=== PATIENT | female | born 2000 | race Caucasian/White ===

== ENCOUNTER 2024-07-04 00:05 | Inpatient (IN) | payer OTHER ==
[~2024-07-04] VITALS: Ht 170.2 cm; Wt 104.3 kg
[2024-07-04] MEDS ORDERED: miSOPROStoL 25 MCG TAB PV SCH (00:30)
[2024-07-04] MEDS ORDERED: MAGNESIUM HYDROXIDE/AL HYDROX 30 ML CUP PO PRN ×2 (00:30→10:15)
[2024-07-04] MEDS ORDERED: LACTATED RINGER'S 1,000 ML IV PRN (00:30)
[2024-07-04] MEDS ORDERED: OXYTOCIN/DEXTROSE 5% 20 UNITS/100 ML BAG IV SCH (00:30)
[2024-07-04] MEDS ORDERED: CALCIUM CARBONATE 500 MG CHEW PO PRN ×2 (00:30→10:15)
[2024-07-04] MEDS ORDERED: LACTATED RINGER'S 1,000 ML IV SCH (00:30)
[2024-07-04 00:48] LABS: HEMATOCRIT 34.2 % (35.0-50.0); HEMOGLOBIN 11.7 g/dL (12.0-18.0); MCH 30.2 (27-36); MCHC 34.1 g/dl (30-36); MCV 88.7 fl (81-99); RBC 3.86 M/ul (4.3-5.7)
[2024-07-04 01:04] LABS: AMPHETAMINES, URINE NEGATIVE (NEGATIVE); BARBITURATES, URINE NEGATIVE (NEGATIVE); BENZODIAZEPINE, URINE NEGATIVE (NEGATIVE); BUPRENORPHINE, URINE NEGATIVE (NEGATIVE); CANNABINOID, URINE NEGATIVE (NEGATIVE); COCAINE, URINE NEGATIVE (NEGATIVE); ECSTASY, URINE NEGATIVE (NEGATIVE); FENTANYL, URINE NEGATIVE (NEGATIVE); METHADONE, URINE NEGATIVE (NEGATIVE); OPIATES, URINE NEGATIVE (NEGATIVE); OXYCODONE, URINE NEGATIVE (NEGATIVE); PHENCYCLIDINE, URINE NEGATIVE (NEGATIVE)
[2024-07-04 01:22] LABS: ABO A; ANTIBODY SCREEN NEGATIVE; RH POSITIVE
[2024-07-04] MEDS ORDERED: LACTATED RINGER'S 500 ML IV PRN (07:15)
[2024-07-04] MEDS ORDERED: ROPIVACAINE 0.2% 200 ML BAG EPIDURAL SCH (07:15)
[2024-07-04] MEDS ORDERED: LACTATED RINGER'S 2,000 ML IV ONE (07:15)
[2024-07-04] MEDS ORDERED: ePHEDrine sulfate 5 MG/ML SYRINGE IV PRN (07:15)
[2024-07-04 08:32] LABS: CREATININE, SERUM 0.79 mg/dL (0.55-1.02)
[2024-07-04 08:40] LABS: CREATININE, RANDOM URINE 203.21 mg/dL (NOT ESTABLISHED); PROTEIN/CREATININE RATIO 0.12 mg/mg (0.010-0.107)
[2024-07-04] MEDS ORDERED: ACETAMINOPHEN 325 MG TAB PO PRN (10:15)
[2024-07-04] MEDS ORDERED: HYDROCORTISONE ACETATE 25 MG SUPP PR PRN (10:15)
[2024-07-04] MEDS ORDERED: OXYTOCIN/0.9 % SODIUM CHLORIDE 500 ML IV SCH (10:15)
[2024-07-04] MEDS ORDERED: IBUPROFEN 600 MG TAB PO PRN (10:15)
[2024-07-04] MEDS ORDERED: OXYCODONE HCL 5 MG TAB PO PRN (10:15)
[2024-07-04] MEDS ORDERED: HYDROCODONE/ACETA 5/325 TAB PO PRN (10:15)
[2024-07-04] MEDS ORDERED: WITCH HAZEL/GLYCERIN 1 EA PAD TOP PRN (10:15)
[2024-07-04] MEDS ORDERED: BENZOCAINE 60 ML AEROSOL TOP PRN (10:15)
[2024-07-04] MEDS ORDERED: LIDOCAINE 2% VISCOUS 6 ML SYR TOP ONE ×2 (10:15)
[2024-07-04] MEDS ORDERED: MAGNESIUM HYDROXIDE 30 ML UDC PO PRN (10:15)
[2024-07-04 15:23] LABS: HEMATOCRIT 38.1 % (35.0-50.0); HEMOGLOBIN 12.9 g/dL (12.0-18.0); MCH 30.2 (27-36); MCHC 33.9 g/dl (30-36); MCV 89.1 fl (81-99); RBC 4.28 M/ul (4.3-5.7); RDW 14.7 (10.5-15.0)
[2024-07-04] MEDS ORDERED: SENNOSIDES/DOCUSATE 1 EA TAB PO SCH (21:00)
[2024-07-05 05:45] LABS: HEMATOCRIT 36.1 % (35.0-50.0); HEMOGLOBIN 12.1 g/dL (12.0-18.0); MCH 30.1 (27-36); MCHC 33.6 g/dl (30-36); MCV 89.7 fl (81-99); PLATELET COUNT 112 K/uL (140-440); RBC 4.02 M/ul (4.3-5.7); RDW 14.8 (10.5-15.0)
[2024-07-05 06:04] LABS: SMEAR REVIEW BLOOD SEE COMMENTS
[2024-07-05 06:05] LABS: ALBUMIN 2.4 g/dL (3.4-5.0); ALBUMIN/GLOBULIN RATIO 0.73 (1.1-2.4); ANION GAP 12.1 (7-21); BILIRUBIN, TOTAL 0.2 ng/dL (0.2-1.0); BUN/CREATININE RATIO 11.84 (6.0-28.6); CALCIUM 8.5 mg/dL (8.5-10.1); CREATININE, SERUM 0.76 mg/dL (0.55-1.02); POTASSIUM 4.1 mmol/L (3.5-5.1); PROTEIN, TOTAL 5.7 g/dL (6.4-8.2)
[2024-07-06 05:37] LABS: HEMATOCRIT 33.1 % (35.0-50.0); HEMOGLOBIN 11.3 g/dL (12.0-18.0); MCH 30.5 (27-36); MCV 89.8 fl (81-99); RBC 3.69 M/ul (4.3-5.7); RDW 14.9 (10.5-15.0)
== END 2024-07-06 12:58 | disposition home or self-care (01) | DRG 807 ==
LOC: FBC 00:05
PROVIDERS: ADMIT Obstetrics & Gynecology; ATTEND Obstetrics & Gynecology
PROC: 10E0XZZ Delivery of Products of Conception, External Approach (ICD-10-PCS; principal; 2024-07-04)
PROC: 0KQM0ZZ Repair Perineum Muscle, Open Approach (ICD-10-PCS; 2024-07-04)
PROC: 3E0DXGC Introduction of Other Therapeutic Substance into Mouth and Pharynx, External Approach (ICD-10-PCS; 2024-07-04)
DX: O69.81X0 Labor and delivery complicated by cord around neck, without compression, not applicable or unspecified (principal); Z37.0 Single live birth; O70.1 Second degree perineal laceration during delivery; O76 Abnormality in fetal heart rate and rhythm complicating labor and delivery; Z3A.39 39 weeks gestation of pregnancy
CPT/HCPCS: 01960; 36415; 80053; 80307; 82565; 82570; 84156; 84450; 84520; 84550; 85027; 85060; 86850; 86900; 86901; A9270; J2590; J7121

== ENCOUNTER 2025-07-30 00:08 | Inpatient (IN) | payer OTHER ==
[~2025-07-30] VITALS: Ht 170.2 cm; Wt 103.0 kg
[2025-07-30] MEDS ORDERED: LACTATED RINGER'S 1,000 ML IV SCH (01:00)
[2025-07-30] MEDS ORDERED: TERBUTALINE SULFATE 1 MG/ML AMP SUB-Q PRN (01:00)
[2025-07-30] MEDS ORDERED: MAGNESIUM HYDROXIDE/AL HYDROX 30 ML CUP PO PRN ×2 (01:00→20:45)
[2025-07-30] MEDS ORDERED: LACTATED RINGER'S 1,000 ML IV PRN (01:00)
[2025-07-30] MEDS ORDERED: LIDOCAINE HCL 1% 30 ML SDV INJ PRN (01:00)
[2025-07-30] MEDS ORDERED: OXYTOCIN/0.9 % SODIUM CHLORIDE 30 UNITS/500 ML BAG IV SCH (01:00)
[2025-07-30] MEDS ORDERED: CALCIUM CARBONATE 500 MG CHEW PO PRN ×2 (01:00→20:45)
[2025-07-30 01:03] LABS: MCH 28.7 PG (25.6-32.2); MCHC 33.0 g/dL (32.2-35.5); MCV 87.1 fL (79.4-94.8); RBC 4.18 M/uL (3.93-5.22)
[2025-07-30 01:39] LABS: ABO A; ANTIBODY SCREEN NEGATIVE; RH POSITIVE
[2025-07-30 01:44] VITALS: BP 140/87
[2025-07-30] MEDS ORDERED: OXYTOCIN/0.9 % SODIUM CHLORIDE 500 ML IV SCH ×2 (11:30→20:45)
[2025-07-30 11:57] LABS: AMPHETAMINES, URINE NEGATIVE (NEGATIVE); BARBITURATES, URINE NEGATIVE (NEGATIVE); BENZODIAZEPINE, URINE NEGATIVE (NEGATIVE); CANNABINOID, URINE NEGATIVE (NEGATIVE); COCAINE, URINE NEGATIVE (NEGATIVE); ECSTASY, URINE NEGATIVE (NEGATIVE); FENTANYL, URINE NEGATIVE (NEGATIVE); METHADONE, URINE NEGATIVE (NEGATIVE); OPIATES, URINE NEGATIVE (NEGATIVE); OXYCODONE, URINE NEGATIVE (NEGATIVE); PHENCYCLIDINE, URINE NEGATIVE (NEGATIVE)
[2025-07-30] MEDS ORDERED: fentaNYL citrate 100 MCG/2 ML VIAL ONE (12:51)
[2025-07-30] MEDS ORDERED: ROPIVACAINE 0.2% 200 ML BAG ONE (12:51)
[2025-07-30] MEDS ORDERED: ePHEDrine sulfate 5 MG/ML SYRINGE IV PRN (14:00)
[2025-07-30] MEDS ORDERED: ROPIVACAINE 0.2% 200 ML BAG EPIDURAL SCH (14:00)
[2025-07-30] MEDS ORDERED: LACTATED RINGER'S 2,000 ML IV ONE (14:00)
[2025-07-30] MEDS ORDERED: LACTATED RINGER'S 500 ML IV PRN (14:00)
[2025-07-30] MEDS ORDERED: ACETAMINOPHEN 500 MG TAB PO SCH (20:45)
[2025-07-30] MEDS ORDERED: BENZOCAINE 60 ML AEROSOL TOP PRN (20:45)
[2025-07-30] MEDS ORDERED: HYDROCODONE/ACETA 5/325 TAB PO PRN (20:45)
[2025-07-30] MEDS ORDERED: LIDOCAINE 2% VISCOUS 6 ML SYR TOP ONE ×2 (20:45)
[2025-07-30] MEDS ORDERED: HYDROCORTISONE ACETATE 25 MG SUPP PR PRN (20:45)
[2025-07-30] MEDS ORDERED: WITCH HAZEL/GLYCERIN 1 EA PAD TOP PRN (20:45)
[2025-07-30] MEDS ORDERED: MAGNESIUM HYDROXIDE 30 ML UDC PO PRN (20:45)
[2025-07-30] MEDS ORDERED: SENNOSIDES/DOCUSATE 1 EA TAB PO SCH (21:00)
[2025-07-30] MEDS ORDERED: IBUPROFEN 800 MG TAB PO SCH (22:00)
[2025-07-31] MEDS ORDERED: CALCIUM CARBONATE 500 MG CHEW PO ONE (12:00)
== END 2025-07-31 19:55 | disposition home or self-care (01) | DRG 807 ==
LOC: FBCO 00:08 → FBC 00:45 → MS 22:29 → FBC 07-31 19:55
PROVIDERS: ADMIT Obstetrics & Gynecology; ATTEND Obstetrics & Gynecology
PROC: 10E0XZZ Delivery of Products of Conception, External Approach (ICD-10-PCS; principal; 2025-07-30)
PROC: 3E0R3BZ Introduction of Anesthetic Agent into Spinal Canal, Percutaneous Approach (ICD-10-PCS; 2025-07-30)
PROC: 00HU33Z Insertion of Infusion Device into Spinal Canal, Percutaneous Approach (ICD-10-PCS; 2025-07-30)
DX: O71.4 Obstetric high vaginal laceration alone (principal); Z37.0 Single live birth; Z3A.39 39 weeks gestation of pregnancy
CPT/HCPCS: 01960; 36415; 80307; 85027; 86850; 86900; 86901; A9270; J2795; J3010; J7121